=== PATIENT | female | born 1990 | race Caucasian/White ===

== ENCOUNTER 2019-06-23 13:33 | Emergency (ER) | payer MEDICAID ==
[~2019-06-23] VITALS: Ht 172.7 cm; Wt 86.2 kg
--- NOTE | 2019-06-23 13:41 | NUR ---
CAME IN FOR ABDOMINAL PAIN, N/V, DIARRHEA x 1WEEK, "NOT GOING AWAY". TO ER BED 10, HOOKED TO BP CUFF AND POX, CHANGED TO HOSP GOWN, WARM BLANKET PROVIDED. PATIENT AOx4 , BREATHING EVEN AND UNLABORED. AWAITING MD HAYWOOD.
--- NOTE | 2019-06-23 13:54 | NUR ---
DAISY MENDES AT BEDSIDE
[2019-06-23] MEDS ORDERED: ONDANSETRON HCL/PF 4 MG/2 ML VIAL IVP ONE (14:00)
[2019-06-23] MEDS ORDERED: PANTOPRAZOLE 40 MG VIAL IV ONE (14:00)
[2019-06-23] MEDS ORDERED: FAMOTIDINE/PF INJ 20 MG/2 ML VIAL IV ONE ×2 (14:00→14:20)
[2019-06-23] MEDS ORDERED: IV NS 0.9% 1,000 ML BAG IV ONE (14:00)
[2019-06-23 14:20] LABS: BASOPHILS % (AUTO) 0.5 % (0.0-2.0); EOSINOPHILS % (AUTO) 0.5 % (0.0-6.0); HEMATOCRIT 37 % (33-45); HEMOGLOBIN 12.3 g/dL (11.5-14.8); LYMPHOCYTES # (AUTO) 0.6 /CMM (0.8-4.8); LYMPHOCYTES % (AUTO) 12.6 % (20.0-44.0); MEAN CORPUSCULAR HGB CONC 34 g/dl (31.0-36.0); MEAN CORPUSCULAR VOLUME 111 fL (82-100); MONOCYTES # (AUTO) 0.3 /CMM (0.1-1.30); MONOCYTES % (AUTO) 6.9 % (2.0-12.0); NEUTROPHILS # (AUTO) 3.6 /CMM (1.8-8.9); NEUTROPHILS % (AUTO) 79.5 % (43.0-81.0); PLATELET COUNT (AUTO) 160 /CMM (150-450); RED BLOOD CELL COUNT(AUTO) 3.28 MIL/uL (4.0-5.2); WHITE BLOOD COUNT (AUTO) 4.5 K/uL (4.3-11.0)
[2019-06-23] MEDS ORDERED: ONDANSETRON HCL/PF 4 MG/2 ML VIAL ONE (14:20)
[2019-06-23] MEDS ORDERED: PANTOPRAZOLE 40 MG VIAL ONE (14:20)
[2019-06-23 14:31] LABS: CALCIUM, SERUM 9.1 mg/dL (8.5-10.1); CREATININE 0.7 mg/dL (0.6-1.3); POTASSIUM 3.5 mmol/L (3.5-5.1)
[2019-06-23 14:36] LABS: ALBUMIN 3.4 g/dL (3.4-5.0); BILIRUBIN,DIRECT 1.9 mg/dL (0.0-0.2); BILIRUBIN,TOTAL 2.8 mg/dL (0.2-1.0); TOTAL PROTEIN, SERUM 7.2 g/dL (6.4-8.2)
--- NOTE | 2019-06-23 16:36 | NUR ---
IV removed. Catheter intact and site benign. Pressure and 4x4 applied to site. No bleeding noted.Patient discharged to home in stable condition. Written and verbal after care instructions given. Patient verbalizes understanding of instruction.
[2019-06-23 16:37] VITALS: BP 125/66
== END 2019-06-23 16:37 | disposition home or self-care (01) ==
LOC: ER 13:35
DX: R11.10 Vomiting, unspecified (principal); R19.7 Diarrhea, unspecified; R10.13 Epigastric pain; K76.0 Fatty (change of) liver, not elsewhere classified; G40.909 Epilepsy, unspecified, not intractable, without status epilepticus
CPT/HCPCS: 36415; 76705; 80048; 80076; 83690; 85025; 96361; 96374; 96375; 99284; C9113; J2405; J3490; J7030

== ENCOUNTER 2019-07-30 19:53 | Emergency (ER) | payer SELFPAY ==
[~2019-07-30] VITALS: Ht 175.3 cm; Wt 72.6 kg
--- NOTE | 2019-07-30 20:04 | NUR ---
PT AAOX4. BIBRA 878 FROM HOME. UPON ARRIVAL PATIENT C/O R FOOT & R KNEE PAIN SP GLF 2 WEEKS AGO. SHE DENIES KO. RR EVEN AND UNLABORED. PLACED ON MONITOR AND PULSE OX. VSS. AWAITING MD FOR EVAL. WILL CONTINUE TO MONITOR.
--- NOTE | 2019-07-30 20:15 | NUR ---
XRAY AT BEDSIDE
[2019-07-30] MEDS ORDERED: HYDROCODONE/APAP 5/325MG 1 EACH TABLET ONE ×2 (21:39→21:55)
--- NOTE | 2019-07-30 21:50 | NUR ---
PT STATED SHE HAS BEEN FEELING WEAK IN THE LE FOR THE PAST YEAR. MD ORDERED CT.
[2019-07-30] MEDS ORDERED: HYDROCODONE/APAP 5/325MG 1 EACH TABLET PO ONE (22:00)
--- NOTE | 2019-07-30 22:05 | NUR ---
BROUGHT TO CT
--- NOTE | 2019-07-30 23:08 | NUR ---
EMT AT BEDSIDE FOR SPLINT AND CRUTCHES.
--- NOTE | 2019-07-30 23:20 | NUR ---
PT UNABLE TO USE CRUTCHES. WILL TAKE OFF SPLINT AND BE PLACED IN BOOT TO LAINEY WEIGHT.
--- NOTE | 2019-07-30 23:35 | NUR ---
PT AMBUALTED USING BOOT. EMT AT BEDSIDE HELPING PATIENT DRESS. VSS.
--- NOTE | 2019-07-30 23:45 | NUR ---
[facility] in [facility] - 07/31/19 at 0107 by YEISON PT BEING PICKED UP BY ROOMATE. WHEELCHAIRED OUTSIDE.
--- NOTE | 2019-07-30 23:46 | NUR ---
[facility] in [facility] - 07/31/19 at 0106 by YEISON Patient discharged to home in stable condition. Written and verbal after care instructions given. Patient verbalizes understanding of instruction and RX. vss.
--- NOTE | 2019-07-31 01:06 | NUR ---
PT HAS BEEN TRYING TO CONTACT A FAMILY MEMBER TO PICK HER UP. PER PT ROOMATE DRANK AND CANNOT PICK HER UP. AWAITING PT TO CALL SOMEONE. VSS.
--- NOTE | 2019-07-31 01:53 | NUR ---
PER PT, FATHER WILL PICK HER UP.
--- NOTE | 2019-07-31 05:56 | NUR ---
AMBNZ 30MINS.
--- NOTE | 2019-07-31 05:57 | NUR ---
TRIP NUMBER [id number]
--- NOTE | 2019-07-31 06:46 | NUR ---
REPORT GIVEN TO EMS FOR PT DISCHARGE.
[2019-07-31 06:47] VITALS: BP 118/76
--- NOTE | 2019-07-31 06:47 | NUR ---
Patient discharged to home in stable condition. Written and verbal after care instructions given. Patient verbalizes understanding of instruction.
== END 2019-07-31 06:48 | disposition home or self-care (01) ==
LOC: ER 19:56
DX: S92.334A Nondisplaced fracture of third metatarsal bone, right foot, initial encounter for closed fracture (principal); F17.200 Nicotine dependence, unspecified, uncomplicated; G40.909 Epilepsy, unspecified, not intractable, without status epilepticus; W18.39XA Other fall on same level, initial encounter; Y93.89 Activity, other specified; Y92.89 Other specified places as the place of occurrence of the external cause; Y99.8 Other external cause status
CPT/HCPCS: 72128-TC; 72131-TC; 73564-TC; 73630-TC